=== PATIENT | male | born 1950 ===

== ENCOUNTER 2021-06-11 13:05 | Inpatient (IN) | payer SELFPAY ==
[2021-06-11] MEDS ORDERED: Lorazepam 2 MG/ML VIAL ONE (14:10)
[2021-06-11] MEDS ORDERED: Morphine 4 MG/ML VIAL ONE (14:11)
[2021-06-11] MEDS ORDERED: Morphine 2 MG/ML VIAL SLOW IVP PRN ×3 (14:28→14:31)
[2021-06-11] MEDS ORDERED: Lorazepam 2 MG/ML VIAL SLOW IVP SCH (14:30)
[2021-06-11] MEDS ORDERED: Lorazepam 2 MG/ML VIAL SLOW IVP PRN (14:31)
[2021-06-11] MEDS ORDERED: Bisacodyl 10 MG SUPP PR PRN (14:37)
[2021-06-11] MEDS ORDERED: Haloperidol Lactate 5 MG/ML VIAL SLOW IVP PRN (14:45)
[2021-06-11] MEDS ORDERED: Ondansetron PF 4 MG/2 ML Vial IVP PRN (14:45)
[2021-06-11] MEDS ORDERED: Scopolamine 1.5 mg/72 hour Patch TOP PRN (14:45)
[2021-06-11] MEDS ORDERED: diphenhydrAMINE 50 MG/ML VIAL IVP PRN (14:45)
[2021-06-11] MEDS ORDERED: Morphine 2 MG/ML VIAL SLOW IVP SCH (14:45)
[2021-06-11] MEDS ORDERED: Acetaminophen 650 MG Suppository PR PRN (14:45)
== END 2021-06-11 23:50 | disposition expired | DRG 951 ==
LOC: CSHOT 13:05 → EDSTATUS 14:13 → CSHIMCU 14:13
PROVIDERS: ADMIT Family Medicine; ATTEND Family Medicine
DX: Z51.5 Encounter for palliative care (principal); A41.9 Sepsis, unspecified organism; R65.21 Severe sepsis with septic shock; J96.01 Acute respiratory failure with hypoxia; J44.1 Chronic obstructive pulmonary disease with (acute) exacerbation; J44.0 Chronic obstructive pulmonary disease with (acute) lower respiratory infection; Z66 Do not resuscitate; I48.91 Unspecified atrial fibrillation; Z88.2 Allergy status to sulfonamides; Z87.891 Personal history of nicotine dependence; Z85.820 Personal history of malignant melanoma of skin; K70.30 Alcoholic cirrhosis of liver without ascites; F10.10 Alcohol abuse, uncomplicated; Z88.1 Allergy status to other antibiotic agents; Z79.899 Other long term (current) drug therapy
CPT/HCPCS: J2060; J2270